=== PATIENT | male | born 1970 | race Caucasian/White ===

== ENCOUNTER 2020-11-27 15:25 | Emergency (ER) | payer MEDICAID ==
[~2020-11-27] VITALS: Ht 175.3 cm; Wt 71.4 kg
[2020-11-27 15:57] VITALS: BP 124/82
== END 2020-11-27 17:58 | disposition home or self-care (01) ==
LOC: ER 15:26
DX: K40.90 Unilateral inguinal hernia, without obstruction or gangrene, not specified as recurrent (principal)
CPT/HCPCS: 99282

== ENCOUNTER 2021-02-13 22:51 | Emergency (ER) | payer MEDICAID ==
[~2021-02-13] VITALS: Ht 175.3 cm; Wt 77.2 kg
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
[2021-02-14] MEDS ORDERED: bacitracin 15gm ointment TP ONE (00:10)
[2021-02-14] MEDS ORDERED: TETanus/Pertussis (Acell)/Diphther VAC/PF (Tdap-Adult) 0.5ml syringe IMVAC ONE (00:10)
[2021-02-14] MEDS ORDERED: LIDOcaine 1% W/epiNEPHrine 1:200,000 10ml vial IJ ONE (00:10)
[2021-02-14] MEDS ORDERED: CEPH-585 PO (01:04)
[2021-02-14] MEDS ORDERED: ketorolac trometh. 30mg/ml inj. IM ONE (01:10)
[2021-02-14] MEDS ORDERED: acetaminophen 325mg tablet PO ONE (01:10)
[2021-02-14 01:36] VITALS: BP 108/65
== END 2021-02-14 01:54 | disposition home or self-care (01) ==
LOC: ER 22:52
DX: L02.811 Cutaneous abscess of head [any part, except face] (principal); Z20.3 Contact with and (suspected) exposure to rabies; Z79.2 Long term (current) use of antibiotics
CPT/HCPCS: 90471; 90715; 96372; 99284; J1885

== ENCOUNTER 2022-04-10 23:56 | Emergency (ER) | payer MEDICAID ==
[~2022-04-10] VITALS: Ht 175.3 cm; Wt 80.0 kg
[2022-04-11 00:40] VITALS: BP 123/87
--- NOTE | 2022-04-11 00:46 | NUR ---
NOT IN LOBBY 1
== END 2022-04-11 01:30 | disposition left against medical advice (07) ==
LOC: ER 04-11 00:02
DX: K08.89 Other specified disorders of teeth and supporting structures (principal); Z53.21 Procedure and treatment not carried out due to patient leaving prior to being seen by health care provider

== ENCOUNTER 2022-06-18 22:14 | Emergency (ER) | payer MEDICAID ==
[~2022-06-18] VITALS: Ht 175.3 cm; Wt 66.8 kg
--- NOTE | 2022-06-19 00:15 | NUR ---
PT ROOMED IN BED 14.
[2022-06-19] MEDS ORDERED: SULF1TAB49 PO (01:23)
[2022-06-19] MEDS ORDERED: HYDROcodone/acetaminophen 5mg/325mg tablet PO ONE (01:25)
[2022-06-19] MEDS ORDERED: sulfamethoxazole/trimethoprim DS (800/160mg) tablet PO ONE (01:25)
[2022-06-19] MEDS ORDERED: ondansetron 4mg rapidly disintigrating tab PO ONE (01:25)
[2022-06-19] MEDS ORDERED: ketorolac trometh inj. 60 MG/2 ML VIAL IM ONE (01:25)
[2022-06-19 01:56] VITALS: BP 163/110
== END 2022-06-19 01:59 | disposition home or self-care (01) ==
LOC: ER 22:15
DX: K13.0 Diseases of lips (principal)
CPT/HCPCS: 10060; 96372; 99284; J1885

== ENCOUNTER 2023-03-30 23:31 | Emergency (ER) | payer MEDICAID ==
[~2023-03-30] VITALS: Ht 175.3 cm; Wt 80.0 kg
[2023-03-30 23:47] VITALS: BP 124/87
[2023-03-31] MEDS ORDERED: LIDOcaine 1% W/epiNEPHrine 1:100,000 20ml vial SQ ONE (01:05)
[2023-03-31] MEDS ORDERED: CefTRIAXone 1000mg IM Kit (w/lidocaine diluent) IM ONE (01:05)
[2023-03-31] MEDS ORDERED: AMOX-117 PO (02:12)
[2023-03-31] MEDS ORDERED: METR-159 PO (02:12)
[2023-03-31] MEDS ORDERED: IBUP-1985 PO (02:12)
== END 2023-03-31 02:30 | disposition home or self-care (01) ==
LOC: ER 23:31
DX: L02.512 Cutaneous abscess of left hand (principal)
CPT/HCPCS: 26010; 96372; 99283; J0696; A6449